=== PATIENT | female | born 2005 | race Hispanic/Latino ===

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

== ENCOUNTER 2024-12-17 14:36 | Emergency (ER) | payer MEDICAID ==
[~2024-12-17] VITALS: Ht 165.1 cm; Wt 94.8 kg
[~2024-12-17 14:36] MED LIST changes: +PHEN-776 PO
--- NOTE | 2024-12-17 15:43 | HMCIMG ---
US OB <14 WEEKS HISTORY: Abdominal pain COMPARISON: None TECHNIQUE: Obstetrical ultrasound study was performed. FINDINGS: The uterus measures 7 x 2.5 x 4.4 centimeter. Right ovary measures 2.3 x 1.6 x 1.8 centimeter. Left ovary measures 2.4 x 1.6 x 1.6 centimeter. Flow is seen in both ovaries. There is intrauterine saclike structure. In a patient with positive test, differential diagnosis would include early versus ectopic versus missed . Estimated gestational age by sac size is 5 weeks and 4 days. Beta ACG correlation is recommended. No evidence of pole or yolk sac is seen at this time. No fluid is seen in the cul-de-sac. IMPRESSION: 1. There is intrauterine saclike structure. In a patient with positive test, differential diagnosis would include early versus ectopic versus missed . Estimated gestational age by sac size is 5 weeks and 4 days. Beta ACG correlation is recommended.
[2024-12-17 15:46] LABS: BASOPHILS # (AUTO) 0.04 K/uL (0.00-0.20); BASOPHILS % (AUTO) 0.4 % (0.0-5.0); EOSINOPHILS # (AUTO) 0.13 K/uL (0.00-0.70); EOSINOPHILS % (AUTO) 1.3 % (0.0-8.0); HEMATOCRIT 39.9 % (36-48); IMMATURE GRANULOCYTE ABSOLUTE 0.04 K/uL (0-1); LYMPHOCYTES % (AUTO) 30.3 % (21.0-51.0); MEAN CORPUSCULAR HEMOGLOBIN 29.3 pg (27.0-33.0); MEAN CORPUSCULAR HGB CONC 33.6 g/dL (32.0-36.0); MEAN CORPUSCULAR VOLUME 87.3 fL (80-100); MONOCYTES # (AUTO) 0.7 K/uL (0.1-1.0); MONOCYTES % (AUTO) 7.5 % (3.0-13.0); NEUTROPHILS # (AUTO) 5.9 K/uL (1.8-7.7); NEUTROPHILS % (AUTO) 60.1 % (40.0-77.0); PLATELET COUNT (AUTO) 393 K/uL (130-400); RED BLOOD CELL COUNT(AUTO) 4.57 MIL/uL (4.00-5.50); RED CELL DISTRIBUTION WIDTH 13.2 % (11.0-15.5); WHITE BLOOD COUNT (AUTO) 9.9 K/uL (4.8-10.8)
[2024-12-17 15:54] LABS: CREATININE 0.7 mg/dL (0.5-1.0)
[2024-12-17 16:58] VITALS: BP 123/74; PULSE 84; RESP 20; TEMP 98.6; O2SAT 100
--- NOTE | 2024-12-17 17:06 | ERN ---
General Chief Complaint: Abdominal Pain in Stated Complaint: STABBING PAIN ON LEFT SIDE, 5 WEEKS Time Seen by MD: 16:53 History of Present Illness Initial Comments 19 Female five weeks presents for left-sided abdominal pain. Patient reports she was five weeks , she had a positive hCG test at the doctor's office. She was not an ultrasound. She has a left-sided pelvic pain beginning yesterday. No vaginal bleeding or discharge. . No other medical conditions. Allergies: Coded Allergies: No Known Drug Allergies (Unverified Allergy, Unknown, 10/05/21) Home Meds Active Scripts Sulfamethoxazole/Trimethoprim (Bactrim Ds Tablet) 1 Each Tablet, 1 TAB PO BID for 7 Days, #14 TAB 0 Refills Prov:NGHIA WALDRON MD 06/18/22 Phenazopyridine HCl (Pyridium) 200 Mg Tablet, 200 MG PO TID for painful urinat ion, #10 TAB 0 Refills Prov:NGHIA WALDRON MD 06/18/22 Phenazopyridine HCl (Pyridium) 200 Mg Tab, 200 MG PO TIDP, #6 TAB 0 Refills TAKE WITH FOOD TO PREVENT STOMACH UPSET. Prov:PARK VERA MD 10/05/21 Dicyclomine HCl (Bentyl) 20 Mg Tab, 20 MG PO Q6HPRN, #20 TAB 0 Refills Prov:PARK VERA MD 10/05/21 Sulfamethoxazole/Trimethoprim (Bactrim Ds Tablet) 1 Each Tablet, 1 TAB PO BID for 10 Days, #20 TAB 0 Refills Prov:PARK VERA MD 10/05/21 Past Medical History Past Medical History: No Pertinent History Past Surgical History: None Social History Social History: Negative Female( History) LMP: Nov 07, 2024 : 1 Para: 0 Aborts: 0 ROS Dictation CONSTITUTIONAL: No chills, no fever, no weakness, no diaphoresis, no malaise. HEAD/FACE: No signs of trauma. EENT: No eye pain, no blurred vision, no tearing, no double vision, no ear pain, no ear discharge, no nose pain, no nasal congestion, no throat pain, no throat swelling, no mouth pain. RESPIRATORY: No cough, no orthopnea, no SOB, no stridor, no wheezing. CARDIOVASCULAR: No chest pain, no edema, no palpitations, no syncope. GASTROINTESTINAL/ABDOMINAL: Left-sided pelvic pain GENITOURINARY: No abnormal discharge, no dysuria, no frequent urination, no hematuria. No complaints of pain in the genitals. MUSCULOSKELETAL: No back pain, no gout, no joint pain, no joint swelling, no muscle pain, no muscle stiffness, no neck pain. INTEGUMENTARY: No change in color, no change in hair/nails, no dryness, no lesion, no lumps, no rash. NEUROLOGICAL/PSYCH: No anxiety, not depressed, no emotional problem, no headache, no numbness, no pre-existing deficit, no history of seizures, no tremors, no weakness. HEMATOLOGIC/LYMPHATIC: Not anemic, no history of blood clots, no apparent bleeding, no bruising, glands not swollen. All Systems Negative, Except as Noted. Physical Exam Physical Exam Dictation VITAL SIGNS: Reviewed. GENERAL APPEARANCE: Alert, oriented x3, no acute distress, obese. HEAD AND FACE: Non-traumatic. EYES: PERRL, pink conjunctivas, eyelid no trauma, anterior chamber clear. EARS: Pinnas intact and no signs of trauma or erythema. Ear canals clear and no discharge. TMs no erythema. NOSE: No discharge, no bleeding. OROPHARYNX: Mouth normal, teeth no caries, tongue pink. Pharynx clear, no erythema. Tonsils no exudates, no abscesses noted. Mucous membrane moist. NECK: Supple, non-tender, no thyromegaly, no masses, no JVD, no bruits. BREAST: Deferred. CHEST: No tenderness, no crepitus, no paradoxical movement, no retractions. LUNGS: Clear, well-ventilated, symmetric, no rales, no wheezing, no rhonchi, no stridor, good breath sounds bilaterally. HEART: Regular rate, regular rhythm, no murmur, no gallops. VASCULAR: No peripheral edema. ABDOMEN: Soft, positive bowel sounds, nondistended, no guarding, nontender, no rebound, no masses no hepatomegaly, no splenomegaly, no Perez's sign, no hernias. RECTAL: Deferred. GENITAL: Deferred. NEUROLOGICAL: Normal speech, gross motor function intact, gross sensory function intact. MUSCULOSKELETAL: Neck nontender, full range of motion, back nontender, full range of motion. EXTREMITIES: Nontender, full range of motion. SKIN: Color pink, dry, no turgor, no rash, no lacerations, no abrasions, no contusions. LYMPHATICS: Deferred. Results Laboratory and Microbiology Lab and Micro Result Laboratory Tests Test 12/17/24 15:39 White Blood Count 9.9 K/uL (4.8-10.8) Red Blood Count 4.57 MIL/uL (4.00-5.50) Hemoglobin 13.4 g/dL (12.0-16.0) Hematocrit 39.9 % (36-48) Mean Corpuscular Volume 87.3 fL (80-100) Mean Corpuscular Hemoglobin 29.3 pg (27.0-33.0) Mean Corpuscular Hemoglobin Concent 33.6 g/dL (32.0-36.0) Red Cell Distribution Width 13.2 % (11.0-15.5) Platelet Count 393 K/uL (130-400) Mean Platelet Volume 9.8 fL (7.5-10.5) Immature Granulocyte % (Auto) 0.4 % (0-1) Neutrophils (%) (Auto) 60.1 % (40.0-77.0) Lymphocytes (%) (Auto) 30.3 % (21.0-51.0) Monocytes (%) (Auto) 7.5 % (3.0-13.0) Eosinophils (%) (Auto) 1.3 % (0.0-8.0) Basophils (%) (Auto) 0.4 % (0.0-5.0) Neutrophils # (Auto) 5.9 K/uL (1.8-7.7) Lymphocytes # (Auto) 3.0 K/uL (1.0-4.8) Monocytes # (Auto) 0.7 K/uL (0.1-1.0) Eosinophils # (Auto) 0.13 K/uL (0.00-0.70) Basophils # (Auto) 0.04 K/uL (0.00-0.20) Absolute Immature Granulocyte (auto 0.04 K/uL (0-1) Nucleated Red Blood Cells 0.0 % (0.0-0.19) Sodium Level 136 mmol/L (136-145) Potassium Level 4.0 mmol/L (3.5-5.1) Chloride Level 100 mmol/L (101-111) L Carbon Dioxide Level 31 mmol/L (21-32) Blood Urea Nitrogen 6 mg/dL (7-18) L Creatinine 0.7 mg/dL (0.5-1.0) Glomerular Filtration Rate Calc 126 mL/min (>90) Random Glucose 100 mg/dL (70-105) Total Calcium 8.7 mg/dL (8.5-10.1) Human Chorionic Gonadotropin, Quant 6936 mIU/mL (0-5) H ED Course Orders Procedure Category Date Status Time Cbc With Differential LAB 12/17/24 Complete 14:49 Basic Metabolic Panel LAB 12/17/24 Complete 14:49 Urinalysis Profile LAB 12/17/24 Logged 14:49 Hcg,Quantitative LAB 12/17/24 Complete 14:49 Us Ob <14 Weeks US 12/17/24 Resulted 14:49 Vital Signs Date Time Temp Pulse Resp B/P (MAP) Pulse Ox O2 Delivery O2 Flow Rate FiO2 12/17/24 16:58 98.6 84 20 123/74 100 Room Air* 0 21 12/17/24 14:47 99.1 104 18 119/75 100 Room Air 0 DX & DISP Disposition: Discharge Departure Impression: Primary Impression: Pelvic pain during Condition: Stable Additional Instructions: There are no abnormalities in your workup here today. Your vital signs are stable Your blood work (CBC, BMP) is unremarkable. Your beta hCG level is 6500. The ultrasound shows an intrauterine sac at five weeks four days. There are no abnormalities on your workup here today. 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 Return to the emergency department as needed. Referrals: SELF,REFERRAL (PCP) LESLIE DAO DO Dec 17, 2024 17:06
== END 2024-12-17 17:18 | disposition home or self-care (01) ==
LOC: EDH 14:36
DX: O26.891 Other specified pregnancy related conditions, first trimester (principal); R10.2 Pelvic and perineal pain; Z3A.01 Less than 8 weeks gestation of pregnancy
CPT/HCPCS: 36415; 76801; 80048; 84702; 85025; 99284